=== PATIENT | male | born 1950 | race Hispanic/Latino ===

== ENCOUNTER 2025-02-04 12:54 | Emergency (ER) | payer MEDICARE, OTHER ==
[~2025-02-04] VITALS: Ht 172.7 cm; Wt 77.1 kg
[2025-02-04 12:54] VITALS: TEMP 97.8
[2025-02-04 13:14] LABS: BASOPHILS % 1.1 % (0.0-1.0); EOSINOPHILS % 1.1 % (0.0-6.0); LYMPHOCYTES % 13.2 % (18.0-39.1); MONOCYTES % 15.9 % (4.4-11.3); NEUTROPHILS % 68.5 % (38.7-80.0); RED CELL DISTRIBUTION WIDTH 16.2 % (11.7-14.4)
[2025-02-04 13:34] LABS: INR 0.97
[2025-02-04 13:46] LABS: EST GLOMERULAR FILTRATION RATE 93.0 ML/MIN (>=60)
[2025-02-04] MEDS: SODIUM CHLORIDE 0.9% 500ML 500 ML IV ONE (14:40)
[2025-02-04 16:00] VITALS: PULSE 81; RESP 14; O2SAT 99
== END 2025-02-04 16:15 | disposition home or self-care (01) ==
LOC: ER 13:10
DX: R07.89 Other chest pain (principal); C90.00 Multiple myeloma not having achieved remission; I10 Essential (primary) hypertension; I48.91 Unspecified atrial fibrillation; M54.9 Dorsalgia, unspecified; G89.29 Other chronic pain; M19.09 Primary osteoarthritis, other specified site
CPT/HCPCS: 36415; 71045; 80053; 82550; 83735; 83880; 84484; 85025; 85610; 85730; 93005; 99284; J7040